=== PATIENT | female | born 1975 | race Caucasian/White ===

== ENCOUNTER → 2022-06-16 14:19 | Outpatient (CLI) | payer BC, SELFPAY ==
--- NOTE | ~2022-06-16 | MMUS_ITS ---
EXAMINATION: MM diagnostic dillan BI w kelsi, US breast BI complete HISTORY: Right nipple pruritus TECHNIQUE: ML, MLO and CC 3-D tomosynthesis images of both breasts were performed and synthetic 2-D i mages were generated. CAD analysis was submitted and interpreted. High resolution complete bilateral breast ultrasound examination including all 4 quadrants and subareolar areas was performed. COMPARISON: None BREAST PARENCHYMAL COMPOSITION: The breasts are heterogeneously dense, which may obscure small masses . FINDINGS: MAMMOGRAPHIC FINDINGS: No suspicious mass or architectural distortion, malignant calcification, skin thickening or retractio n is detected. ULTRASOUND: Left breast 2:00 14 cm from nipple: Benign-appearing 5 x 7.5 mm lymph node. No suspicious mass or shadowing, cyst or other significant sonographic abnormality of either breast i s noted. IMPRESSION: 1. No mammographic or sonographic evidence of malignancy 2. Routine mammographic screening is recommended BI-RADS Category 1: Negative Reviewed, dictated and finalized at location A. IMPRESSION: 1. No mammographic or sonographic evidence of malignancy 2. Routine mammographic screening is recommended BI-RADS Category 1: Negative
== END ==
PROVIDERS: PCP Obstetrics & Gynecology Gynecology; Visit Provider Nurse Practitioner
DX: N64.59 Other signs and symptoms in breast (principal); Z78.0 Asymptomatic menopausal state
CPT/HCPCS: 76641; 77062; 77066; G0279

== ENCOUNTER 2024-07-14 12:32 | Outpatient (CLI) | payer BC, SELFPAY ==
--- NOTE | ~2024-07-14 | MM_ITS ---
EXAMINATION: MM screening dillan BI w kelsi HISTORY: Screening TECHNIQUE: Craniocaudal and mediolateral oblique 3-D tomosynthesis images were obtained and synthetic 2-D images were generated. CAD analysis was submitted and interpreted. COMPARISON: 06/16/2022 BREAST PARENCHYMAL COMPOSITION: Not dense: There are scattered areas of fibroglandular density. FINDINGS: There is no evidence of suspicious mass, calcification, or architectural distortion to sugg est malignancy in either breast. There has been no suspicious interval change. IMPRESSION: 1. No mammographic evidence of malignancy. 2. Recommend routine screening mammography in one year. BI-RADS Category 1: Negative Reviewed, dictated and finalized at location B.
== END 2024-07-14 12:33 | disposition home or self-care (01) ==
PROVIDERS: PCP Obstetrics & Gynecology Gynecology; Visit Provider Obstetrics & Gynecology Gynecology
DX: Z12.31 Encounter for screening mammogram for malignant neoplasm of breast (principal)
CPT/HCPCS: 77063; 77067

== ENCOUNTER 2024-11-23 09:33 | Emergency (ER) | payer BC, SELFPAY ==
--- OUTSIDE RECORDS SUMMARY | 2024-11-23 09:37 | XMS_ITS | Encounter Summary ---
Author Organization [facility] Address [address] [place] [address] Care Team Providers Care Assistant Director Of Nursing Name Role Phone Aurelia Silver [facility] Primary Care Provider + Michael Mandel MD Primary Care Provider [phone] Encounter Details Date Type Department Care Team (Late st Contact Info) Description 02/14/2024 Dazo Message Enc [facility] Medical Group Family & Internal Medicine [facility] [id number] [place] [phone] Aurelia Silver, [address] [place] [address] Breast reduction Social History Tobacco Use Types Packs/Day Years Used Date Smoking Tobacco: Former Cigarettes 1 5 0 04/02/1996 - 04/02/2001 Smokeless Tobacco: Never Alcohol Use Standard Drinks/Week Comments Never 0 (1 standard drink = 0.6 oz pur e alcohol) Once a year PHQ-2 Answer Date Recorded Patient Health Questionnaire-2 Score 0 07/11/2023 Comments No Sex and Gender Information Value Date Recorded Sex Assigned at Not on file Legal Sex Female 6:24 PM CDT Gender Identity Not on file Sexual Orientation Not on file 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 Answer Date of Assessment Author Status No 04/28/2017 10:36 AM HORSE RACING ANALYST Acti ve * Do you have serious difficulty walking or climbing stairs? Answer Date of Assessment Author Status No 04/28/2017 10:36 AM Bryon Cantu RN Active * Do you have difficulty dressing or bathing? Answer Date of Assessment Author Status No 04/28/2017 10:36 AM Bryon Cantu RN Active * Because of a physical, mental, or emotional condition, do you have difficulty doing errands alone such as visiting a doctor's office or shopping? Answer Date of Assessment Author Status No 04/28/2017 10:36 AM Bryon Cantu RN Active documented as of this encounter Mental Status * Because of a physical, mental, or emotional condition, do you have serious difficulty concentrating, remembering, or making decisions? Answer Entry Date Author Status No 04/28/2017 10:36 AM Bryon Cantu RN Active documented in this encounter Plan of Treatment Upcoming Encounters Date Type Department Care Team (Late st Contact Info) Description 05/04/2025 8:20 AM HORSE RACING ANALYST Office Visit [facility] Medical Group Multispecialty Care - [facility] 3 [facility], [address] [place] [phone] Danish Gibbons MD [address] [place] [address] [place] [address] documented as of this encounter Visit Diagnoses Not on filedocumented in this encounter Additional Health Concerns Assessment Noted Time PHQ-9 Depression Total Score: 1 07/11/19 24 6:59 AM CDT documented as of this encounter Care Teams Assistant Director Of Nursing Relationship Specialty Start Date End Date Aurelia Silver, [employer] REPRESENTATIVE- [address] [place] [address] PCP - General Nurse Practitioner Family 11/24/2209/30 [place] [address] [place] [address] PCP - General INTERNAL MEDICINE 10/11/24 documented as of this encounter
--- OUTSIDE RECORDS SUMMARY | 2024-11-23 09:37 | XMS_ITS | Encounter Summary ---
Author Organization [facility] Address [address] [place] [address] Care Team Providers Care Canine Service Teacher Name Role Phone Aurelia Silver [facility] Primary Care Provider + Michael Mandel MD Primary Care Provider [phone] Encounter Details Date Type Department Care Team (Late st Contact Info) Description 09/18/2024 menuvox Message Enc [facility] Medical Group Family & Internal Medicine [facility] [id number] [place] [phone] Aurelia Silver, [address] [place] [address] Referral Social History Tobacco Use Types Packs/Day Years Used Date Smoking Tobacco: Former Cigarettes 1 5 0 04/02/1996 - 04/02/2001 Smokeless Tobacco: Never Alcohol Use Standard Drinks/Week Comments Never 0 (1 standard drink = 0.6 oz pur e alcohol) Once a year PHQ-2 Answer Date Recorded Patient Health Questionnaire-2 Score 0 09/11/2024 Comments No Sex and Gender Information Value Date Recorded Sex Assigned at Not on file Legal Sex Female 6:24 PM CDT Gender Identity Not on file Sexual Orientation Not on file 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 Answer Date of Assessment Author Status No 04/28/2017 10:36 AM CUSTOMS OFFICER Acti ve * Do you have serious [...] Cantu RN Active documented in this encounter Progress Notes * Page Sheets RN - 09/18/2024 12:01 PM CDT Ok, thank you! * Noemí Martinez - 09/18/2024 11:13 AM CDT Good morning, It looks like this referral has been sent internally to [facility]. It is currently on their work queue. If pt would like to call to schedule, she may reach their office at . Thank you! Noemí * Page Sheets RN - 09/18/2024 10:34 AM CDT Referral placed on 6-12 for this. Any updates on this? Has it been processed? Thank you! documented in this encounter Plan of Treatment Upcoming Encounters Date Type Department Care Team (Late st Contact Info) Description 05/04/2025 8:20 AM CUSTOMS OFFICER Office Visit [facility] Medical Group Multispecialty Care - [facility] 3 [facility] [address] [place] [address] Danish Gibbons MD [address] [facility] [address] [place] [address] documented as of this encounter Visit Diagnoses Not on filedocumented in this encounter Additional Health Concerns Assessment Noted Time PHQ-9 Depression Total Score: 1 07/11/19 24 6:59 AM CDT documented as of this encounter Care Teams Canine Service Teacher Relationship Specialty Start Date End Date Aurelia Silver, [facility]- [address] [place] [address] PCP - General Nurse Practitioner Family 11/24/2209/30 [place] [address] [address] [address] PCP - General INTERNAL MEDICINE 10/11/24 documented as of this encounter
--- OUTSIDE RECORDS SUMMARY | 2024-11-23 09:38 | XMS_ITS | Encounter Summary ---
Author Organization [facility] Address [facility] [place] [address] Care Team Providers Care Stitcher Hand Name Role Phone Sheila Niño Primary Care Provider + [phone] Aurelia Silver [facility] Primary Care Provider + Michael Mandel MD Primary Care Provider [phone] Encounter Details Date Type Department Care Team (Late st Contact Info) Description 09/27/2022 MyChart Message Enc [facility] Medical Group - [facility] [address] [place] [address] Teresa, [facility] Provider Air Quality Message Social History Tobacco Use Types Packs/Day Years Used Date Smoking Tobacco: Never Smokeless Tobacco: Never Alcohol Use Standard Drinks/Week Comments Not Currently 0 (1 standard drink = 0.6 oz pur e alcohol) Once a year PHQ-2 Answer Date Recorded Patient Health Questionnaire-2 Score 0 09/13/2022 Comments No Sex and Gender Information Value Date Recorded Sex Assigned at Not on file Legal Sex Female 6:24 PM CDT Gender Identity Not on file Sexual Orientation Not on file 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 No / Unsure 09/13/2022 10:41 AM CDT documented as of this encounter Functional Status * RETIRED Are you deaf or do you have serious difficulty hearing Answer Date of Assessment Author Status No 04/28/2017 10:36 AM NUT BLANKER OPERATOR Acti ve * RETIRED Are you blind or do you have serious difficulty seeing, even when wearing glasses? Answer Date of Assessment Author Status No 04/28/2017 10:36 AM NUT BLANKER OPERATOR Acti ve * Do you have serious [...] st Contact Info) Description 05/04/2025 8:20 AM NUT BLANKER OPERATOR Office Visit [facility] Medical Group Multispecialty Care - [address], [address] [place] [phone] Danish Gibbons MD [address] [place] [address] [place] [address] documented as of this encounter Visit Diagnoses Not on filedocumented in this encounter Additional Health Concerns Assessment Noted Time PHQ-9 Depression Total Score: 0 09/14/19 23 11:06 AM CDT documented as of this encounter Care Teams Stitcher Hand Relationship Specialty Start Date [place] Date [place] [address] [place] [address] PCP - General PHYSICIAN MOLD CHANGER 12/06/21 11/23/22 Aurelia Silver, [facility]- [address] [place], [place] [phone] PCP - General Nurse Practitioner Family 11/24/2209/30 [place] [address] [address] [id number] PCP - General INTERNAL MEDICINE 10/11/24 documented as of this encounter
--- OUTSIDE RECORDS SUMMARY | 2024-11-23 09:38 | XMS_ITS | Encounter Summary ---
Author Organization [facility] Address [address] [place] [address] Care Team Providers Care Corporate Learning Consultant Name Role Phone Gene Still MD Primary Care Provider U Suzanne Cherry MD Primary Care Provider + [phone] Sheila Niño Primary Care Provider + [phone] Aurelia Silver [facility] Primary Care Provider + Michael Mandel MD Primary Care Provider [phone] Encounter Details Date Type Department Care Team (Latest Contact Info) Description 02/05/2018 Abstract [facility] Medical Group , Arturo Amaro MD Social History Tobacco Use Types Packs/Day Years Used Date Smoking Tobacco: Never Smokeless Tobacco: Never Alcohol Use Standard Drinks/Week Comments No 0 (1 standard drink = 0.6 oz pur e alcohol) Comments No Sex and Gender Information Value Date Recorded Sex Assigned at Not on file Legal Sex Female 6:24 PM CDT Gender Identity Not on file Sexual Orientation Not on file 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 Answer Date of Assessment Author Status No 04/28/2017 10:36 AM WINDOW GLAZIER Acti ve * Do you have serious [...] st Contact Info) Description 05/04/2025 8:20 AM WINDOW GLAZIER Office Visit [facility] Medical Group Multispecialty Care - [facility] [address] [facility] [place] [phone] Danish Gibbons MD [address] [place] [address] [place] [address] documented as of this encounter Visit Diagnoses Not on filedocumented in this encounter Care Teams Corporate Learning Consultant Relationship Specialty Start Date End Date Gene Still MD PCP - General INTERNAL MEDICINE 04/27/17 11/25/18 Suzanne Still MD PCP - General INTERNAL MEDICINE 11/26/18 11/29/20 [place] [address] [place] [address] PCP - General PHYSICIAN BUSINESS FUNCTIONAL ANALYST 12/06/21 11/23/22 Aurelia Silver, [facility]- [address] [place] [address] PCP - General Nurse Practitioner [facility] 11/24/2209/30 [place] [address] [address] [address] PCP - General INTERNAL MEDICINE 10/11/24 documented as of this encounter
--- OUTSIDE RECORDS SUMMARY | 2024-11-23 09:38 | XMS_ITS | Patient Health Record ---
Author Organization [facility] Address [address] [facility] [[email or web address] [address] [place] [address] Care Team Providers Care Plumbing Warehouse Helper Name Role Phone Suzanne Still MD Primary Care Provider Unavail able Reason For Referral No Information Plan Of Treatment No Information Insurance Providers Payer Name Payer Address Payer Phone Subscriber Number Group Number Insured Name Patient Relationship to Insured Coverage Start Date Coverage End Date [facility] [address] [place] [address] [id number] 2EYulisa [place]as Self - patient is the insured
--- OUTSIDE RECORDS SUMMARY | 2024-11-23 09:38 | XMS_ITS | Encounter Summary ---
Author Organization [facility] Address [address] [place] [address] Care Team Providers Care Playback Operator Name Role Phone Sheila Niño Primary Care Provider + [phone] Aurelia Silver [facility] Primary Care Provider + Michael Mandel MD Primary Care Provider [phone] Encounter Details Date Type Department Care Team (Late st Contact Info) Description 04/26/2022 ONTRAPORT Message Enc [facility] Medical Group Family & Internal Medicine [facility] [address] [place] [address] Sheila Niño [place] [address] [place] [address] MPV Social History Tobacco Use Types Packs/Day Years Used Date Smoking Tobacco: Never Smokeless Tobacco: Never Alcohol Use Standard Drinks/Week Comments Not Currently 0 (1 standard drink = 0.6 oz pur e alcohol) Once a year PHQ-2 Answer Date Recorded Patient Health Questionnaire-2 Score 0 04/25/2022 Comments No Sex and Gender Information Value Date Recorded Sex Assigned at Not on file Legal Sex Female 6:24 PM CDT Gender Identity Not on file Sexual Orientation Not on file 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 No / Unsure 04/25/2022 8:41 AM LASER SYSTEMS ENGINEER documented as of this encounter Functional Status * RETIRED Are you deaf or do you have serious difficulty hearing Answer Date of Assessment Author Status No 04/28/2017 10:36 AM LASER SYSTEMS ENGINEER Acti ve * RETIRED Are you blind or do you have serious difficulty seeing, even when wearing glasses? Answer Date of Assessment Author Status No 04/28/2017 10:36 AM LASER SYSTEMS ENGINEER Acti ve * Do you have serious difficulty walking or climbing stairs? Answer Date of Assessment Author Status No 04/28/2017 10:36 AM LASER SYSTEMS ENGINEER Bryon Cherry RN Active * Do you have difficulty [...] st Contact Info) Description 05/04/2025 8:20 AM LASER SYSTEMS ENGINEER Office Visit [facility] Medical Group Multispecialty Care - [address] [place] [address] Danish Gibbons MD [address] [place] [address] [address] [place] [address] documented as of this encounter Visit Diagnoses Not on filedocumented in this encounter Care Teams Playback Operator Relationship Specialty Start Date [place] Date [place]ila [place] [address] [place] [address] PCP - General PHYSICIAN PIPE STRIPPER 12/06/21 11/23/22 Aurelia Silver, [facility]- [address] [place], [place] [id number] PCP - General Nurse Practitioner Family 11/24/2209/30 [place] [address] [address] [address] PCP - General INTERNAL MEDICINE 10/11/24 documented as of this encounter
--- NOTE | 2024-11-23 09:41 | ED.URI ---
HPI - URI/Sore Throat General Chief Complaint: Upper Respiratory Infection Stated Complaint: Cold Like Patient presents to the [facility] accompanied by spouse with complaints of 2 weeks ago starting with sinus pain, headache, nasal congestion, nasal discharge, sore throat and cough. Patient reports using DayQuil and her air supra inhaler with some relief of symptoms. Noted that she continues to have occasional productive cough, wheezing, occasional shortness of breath, headache, nasal drainage but is now clear and concerned that she continues to have symptoms. Patient noted she continues using her air super inhaler as needed with relief of symptoms. Denies fever, chills, body aches, chest pain, dizziness, ear pain, current sore throat. Related Data Home Medications ?Medication ?Instructions ?Recorded ?Confirmed ?Last Taken ?Type albuterol 90 mcg-budesonide 80 inh inhalation 11/23/24 Unknown History mcg/actuation HFA aerosol inhaler (Airsupra) sertraline 100 mg tablet mg 11/23/24 Unknown History Allergies Allergy/AdvReac Type Severity Reaction Status Date / Time Penicillins Allergy Mild Hives Verified 11/23/24 09:37 Review of Systems Constitutional: Constitutional: Reports as per HPI, Denies chills, Reports fatigue, Denies fever(s) and Denies weakness Eyes: Eyes: Reports no additional eye complaints ENT: Reports as per HPI, Denies vertigo, Denies dizziness, Reports nasal congestion and Reports sore throat Comments: Nasal discharge Cardiovascular: Cardiovascular: Reports no additional cardiovascular complaints Respiratory: Respiratory: Reports as per HPI, Reports chest congestion, Reports cough, Reports dyspnea and Reports wheezing Gastrointestinal: Gastrointestinal: Reports no additional gastrointestinal complaints Genitourinary: Genitourinary: Reports no additional female genitourinary complaints Musculoskeletal: Musculoskeletal: Reports no additional musculoskeletal complaints Integumentary/Breasts: Skin/Breast: Reports as per HPI, Denies erythema and Denies rash Neurologic: Reports as per HPI, Denies vertigo, Denies dizziness and Reports headache(s) Psychiatric: Psychiatric: Reports no additional psychiatric complaints Endocrine: Endocrine: Reports no additional endocrine complaints Hematologic/Lymphatic: Hematologic/Lymphatic: Reports no additional hematologic/lymphatic complaints Allergic/Immunologic: Allergic/Immunologic: Reports as per HPI Comments: seasonal allergies Exam Const: General: healthy appearing and no acute distress Nutritional Appearance: well nourished Orientation/consciousness: patient oriented x3 Limitations: no limitations HENMT: Head: normal to inspection Ears: external ears normal and TM's normal bilaterally Face/Nose/Sinus: Normal external nose present and Normal nares present Face and sinus: normal facial exam and sinuses nontender Mouth: Yes Normal oral and palatal mucosa present Throat: posterior oropharynx abnormal ( minimal erythema, no edema or exudate noted) Neck: Neck: normal visual inspection and no lymphadenopathy Resp: Effort & Inspection: normal respiratory effort Auscultation: clear to auscultation bilaterally Other: dry cough noted. Percussion normal Cardio: Rate: regular rate Rhythm: regular rhythm Skin: General skin exam: normal color Rashes: no rashes Wounds: no wounds Neuro: General: patient oriented x3 Speech: normal speech Gait exam (Neuro): Normal gait present Psych: Mental Status: mental status grossly normal Affect: normal affect Attitude: cooperative Course Course Level of Care: Express Care Visit MDM - URI/Sore Throat MDM Narrative Medical decision making narrative: no dullness to percussion no fever improving symptoms unlikely to need antibiotics at this time. No pneumonia concerns. The patient was evaluated by myself in the express care. History is obtained from patient who is an independent historian and physical exam was performed. Available medical records were reviewed at this time. Exam findings show no acute concerns or changes; patient is non-toxic appearing and is in no distress. Patient is appropriate for outpatient treatment and follow-up. I have evaluated and discussed social determinants of health with the patient that could potentially impact subsequent diagnosis and treatment plans. Differential diagnosis and treatment plan were discussed with the patient. Patient agrees with discussion and after shared medical decision making agrees with plan of care. All questions were answered to the patient's satisfaction. Differential Diagnosis Differential diagnosis: Likely upper respiratory infection, otitis media, sinusitis, influenza and pharyngitis Medical Records Attestation: I reviewed the patient's medical records. Discharge Plan Discharge Clinical Impression: Bronchitis Patient Disposition: Home Condition: Stable Instructions: Antibiotic Form, Acute Bronchitis (ED), Bronchospasm (ED) Additional Instructions: Return to urgent care or go to the ER for new or worsening symptoms. Continue to take Tylenol or Motrin for pain. Use a Cool-mist humidifier or vaporizer at night. Drink plenty of water. 8-10 glasses per day. Use flonase 2 times per day for 5 days then as needed take the Zyrtec once daily for the next 7 days. Follow up with Primary provider if not getting better. Take your air suppra inhaler every 4-6 hours for the next 2-3 days then began using as needed. May use your nebulizer at bedtime. Take the full dose of steroids as directed to decrease inflammation and open up sinus and airway Increase water intake to 8-10 glasses per day Patient Language: Ukrainian Prescriptions: New benzonatate 200 mg capsule 200 mg PO TID PRN (Reason: cough) Qty: 30 0RF prednisone 20 mg tablet 60 mg PO DAILY Qty: 15 0RF No Action sertraline 100 mg tablet Airsupra 90-80 mcg/actuation HFA aerosol inhaler INHALATION Follow-up/Referrals: PHYSICIAN,SOFTWARE SECURITY CONSULTANT [Primary Care Provider, Internal Medicine] Time of Disposition: 09:55
[2024-11-23 09:46] VITALS: BP 127/88; PULSE 75; RESP 18; TEMP 36.4; O2SAT 98
== END 2024-11-23 09:57 | disposition home or self-care (01) ==
PROVIDERS: Emergency Provider Nurse Practitioner Family
DX: J40 Bronchitis, not specified as acute or chronic (principal)
CPT/HCPCS: 99203; G0463